=== PATIENT | female | born 1945 | race Asian ===

== ENCOUNTER → 2018-11-15 | Outpatient (CLI) | payer BC | END | disposition home or self-care (01) | LOC: CFH 12:31 | PROVIDERS: ATTEND Family Medicine | DX: Z12.31 Encounter for screening mammogram for malignant neoplasm of breast (principal); M85.89 Other specified disorders of bone density and structure, multiple sites; M81.0 Age-related osteoporosis without current pathological fracture | CPT/HCPCS: 77080; 77067 ==